=== PATIENT | female | born 1950 | race Caucasian/White ===

== ENCOUNTER → 2020-05-08 | Outpatient (CLI) | payer MEDICARE ==
[~2020-05-08] MED LIST: CONTRAST GIVEN. MC PRN; HYOS0.1222 PO; IOHEXOL 300 MG/ML 100ML VIAL. IV ONE; METF500T16 PO; MIRA50TA PO; PROG100C10 PO; RAMI10CA53 PO
--- NOTE | 2020-05-08 12:15 | KCIC ---
EXAM: CT CORONARY CALCIUM SCORING. HISTORY: Chest pain at rest. Calcium scoring is requested. COMPARISON: None. FINDINGS: Limited noncontrast CT of the chest was performed for coronary calcium scoring. Refer to the worksheets for full detail. Coronary calcium scoring is as follows: LMA: 0. LAD: 1. LCX: 0. RCA: 0. PDA: 0. Total: 1. The included portions of the chest reveal the following. Bone windows reveal no suspicious lesions. Images of the upper abdomen reveal no acute abnormality. There are no pathologically enlarged mediastinal lymph nodes. There is no pleural or pericardial effusion. The heart is not enlarged. There is a tiny benign calcified granuloma in the left midlung. No suspicious lung nodules or masses. IMPRESSION: 1. Coronary calcium score is 1. 2. Benign changes of antecedent granulomatous disease are noted incidentally. 0: No calcified plaque is present. This does not absolutely rule out the presence of atherosclerotic plaque, including unstable plaque, but does imply a very low likelihood of significant luminal narrowing or obstruction. Recommendation: Healthy lifestyle choices including cessation of smoking and eating appropriately and exercise are encouraged. 1 to 10: Calcium is detected in the coronary circulation and confirms the presence of atherosclerotic plaque. The greater the amount of coronary calcium, the greater the likelihood of occlusive coronary artery disease. However, there is not a one-to-one relationship, and findings may not be site specific.The total amount of calcium correlates best with the total amount of atherosclerotic plaque, although the true "plaque burden" may be underestimated by calcium score. Individuals in this score range typically have mild to moderate luminal irregularity at coronary angiography. There is low risk of cardiovascular event based on this test. Recommendation: 1. Further evaluation and prevention strategies should be based on global assessment of cardiovascular risk factors in addition to the results of this test. 2. Reduction of modifiable cardiovascular risk factors should be considered. 11-100: Calcium is detected in the coronary circulation and confirms the presence of atherosclerotic plaque. The greater the amount of coronary calcium, the greater the likelihood of stenotic or occlusive coronary artery disease. However, there is not a one-to-one relationship, and findings may not be site specific. The total amount of calcium correlates best with the total amount of atherosclerotic plaque, although the true "plaque burden" may be underestimated by calcium score. Individuals in this score range typically have mild to moderate luminal irregularity at coronary angiography. There is a Low to intermediate risk of cardiovascular events based on this test. Recommendation: 1. Further evaluation and prevention strategies should be based on global assessment of cardiovascular risk factors in addition to the results of this test. 2. Aggressive reduction of modifiable cardiovascular risk factors should be considered. 101 to 400: Calcium is detected in the coronary circulation and confirms the presence of atherosclerotic plaque. The greater the amount of coronary calcium, the greater the likelihood of stenotic or occlusive coronary artery disease. However, there is not a one-to-one relationship, and findings may not be site specific. The total amount of calcium correlates best with the total amount of atherosclerotic plaque, although the true "plaque burden" can be underestimated by calcium score. Individuals in this score range typically have mild to moderate luminal irregularity at coronary angiography. There is an intermediate risk of cardiovascular events based on this test. Recommendation: 1. Further evaluation and prevention strategies should be based on global assessment of cardiovascular risk factors in addition to the results of this test. 2. Aggressive reduction of modifiable cardiovascular risk factors should be considered. Over 400: Calcium is detected in the coronary circulation and confirms the presence of atherosclerotic plaque. The greater the amount of coronary calcium, the greater the likelihood of stenotic or occlusive coronary artery disease. However, there is not a one-to-one relationship, and findings may not be site specific. The total amount of calcium correlates best with the total amount of atherosclerotic plaque, although the true plaque burden may be underestimated by calcium score. A high calcium score may be consistent with a moderate to high risk of cardiovascular events within the 2-5 years. Recommendation: 1. Strongly consider further cardiac evaluation for pre-clinical coronary heart disease. 2. [place] aggressive cardiovascular risk factor modification as indicated based on risk profile. Additional supporting information concerning the findings and recommendation contained within this report can be found in the consensus statements on coronary vascular calcium published by the [place] [employer] and [place] [employer] 5 Conference (Circulation 1996; 94: 9004-5240; J Am Andrei Cardiol 2000; 36: 326-340 and Circulation 2000; 101: 111-116). *One or more of the following individualized dose reduction techniques were utilized for this examination: 1. Automated exposure control. 2. Adjustment of the mA and/or kV according to patient size. 3. Use of iterative reconstruction technique. Electronically signed by: Kiran Rogel MD (05/08/2020 12:12 PM) [id number]
--- NOTE | 2020-05-08 12:54 | KCIC ---
Exam: CT abdomen/pelvis with and without intravenous contrast Indication: Adrenal mass, nephrolithiasis, chest pain at rest Comparison: CT abdomen and pelvis 09/27/2013 Technique: Helical CT imaging performed of the abdomen and pelvis before and after the intravenous administration of 100 mL Omnipaque 300 intravenous contrast. Sagittal and coronal reformats were obtained. One or more of the following individualized dose reduction techniques were utilized for this examination: 1. Automated exposure control 2. Adjustment of the mA and/or kV according to patient size 3. Use of iterative reconstruction technique. Findings: Lower chest: Lung bases are clear. Heart is normal in size. Liver: The liver is normal in size. No focal lesion. Hepatic, portal, and superior mesenteric veins are patent. There is a calcified splenic artery aneurysm measuring 1.3 cm, unchanged. Gallbladder/Biliary Tree: Normal. Pancreas: Normal. Spleen: Normal. Adrenal Glands: There is a 1.8 cm left adrenal adenoma and a 1.4 cm right adrenal adenoma, both minimally increased in size with Hounsfield units of less than zero on noncontrast phase of the exam and greater than 60 percent washout, consistent with adenomas. Kidneys/Ureters/Bladder: The kidneys are normal in size and enhance symmetrically. Left hydronephrosis on prior exam has resolved There is left nephrolithiasis with several calculi measuring up to 2 mm. No right nephrolithiasis. Or hydronephrosis. Ureters and bladder are normal. Reproductive Organs: The uterus is surgically absent. No adnexal mass. Stomach, small bowel, and colon: Stomach, small bowel, colon, and appendix are normal. Vasculature: Abdominal aorta is normal in caliber. Lymph Nodes: Prominent portacaval lymph node is unchanged in 2014. There is no suspicious lymphadenopathy. Peritoneum and retroperitoneum: No free fluid or free air. Bones: Increased, 6 mm anterolisthesis at L4-L5 related to severe facet arthrosis. Worsening, moderate degenerative disc disease at L4-L5 and milder disc degenerative disc disease elsewhere. Mild osteoarthrosis of the hips. Impression: 1. Small benign bilateral adrenal adenomas. 2. Resolution of left hydronephrosis. Left nephrolithiasis. 3. Unchanged splenic artery aneurysm. 4. Worsened, moderate degenerative disc disease and severe facet arthrosis at L4-L5 with grade 1 spondylolisthesis. Electronically signed by: Vani Millan MD (05/08/2020 12:52 PM) [id number]
== END | disposition home or self-care (01) ==
LOC: KCIC CT 08:22
PROVIDERS: ATTEND Family Medicine
DX: I25.10 Atherosclerotic heart disease of native coronary artery without angina pectoris (principal); N20.0 Calculus of kidney; I72.8 Aneurysm of other specified arteries; M51.36 Other intervertebral disc degeneration, lumbar region; D35.01 Benign neoplasm of right adrenal gland; M43.16 Spondylolisthesis, lumbar region; M16.0 Bilateral primary osteoarthritis of hip; J84.10 Pulmonary fibrosis, unspecified
CPT/HCPCS: 74178; 75571; Q9967

== ENCOUNTER → 2020-10-29 | Outpatient (CLI) | payer MEDICARE ==
[~2020-10-29] MED LIST changes: -CONTRAST GIVEN. MC PRN; -IOHEXOL 300 MG/ML 100ML VIAL. IV ONE
--- NOTE | 2020-10-29 16:08 | KCIC ---
L spine 5 views INDICATION: Low back pain, right-sided sciatica and L4-L5 spondylolisthesis. TECHNIQUE: Standing AP, lateral, bilateral oblique and coned-down lateral views of the lumbar spine w ere obtained FINDINGS: There is levoscoliosis of the lumbar spine with a Bruno angle of approximately 7 degrees as measured f rom the inferior endplate of T12 to the inferior endplate of L4 (5 lumbar type vertebrae noted). With a 1 anterolisthesis of L4-L5 is also apparent measuring approximately 6 mm in the upright lateral vi ew. The bones are mildly demineralized but show no fracture or aggressive appearing osseous lesions. The vertebral body heights are preserved. No pars defects are identified on the oblique views. Multilevel facet hypertrophic change is present. Disc space narrowing is present at multiple levels as well. This is most conspicuous at the L4-L5 and L2-L3 levels. The visualized hips and sacroiliac joints are unremarkable. Soft tissues show arterial vascular calci fications in the splenic artery and moderate stool in the bowel. IMPRESSION: Multilevel lumbar spinal degenerative changes involving the disks and facet joints with levoscoliosis and L4-L5 grade 1 anterolisthesis as described. No fracture or aggressive appearing bony lesions not ed. Electronically signed by: Mesha Chand MD (10/29/2020 4:05 PM) [id number]
== END ==
LOC: KCIC 14:12
PROVIDERS: ATTEND Family Medicine
DX: M47.816 Spondylosis without myelopathy or radiculopathy, lumbar region (principal); M43.16 Spondylolisthesis, lumbar region; M41.86 Other forms of scoliosis, lumbar region; M54.31 Sciatica, right side
CPT/HCPCS: 72110

== ENCOUNTER → 2021-05-21 | Outpatient (CLI) | payer MEDICARE ==
[~2021-05-21] MED LIST changes: +IOHEXOL 300 MG/ML 100ML VIAL. IV ONE; +MIRA25TA PO; -MIRA50TA PO
--- NOTE | 2021-05-21 13:42 | KCIC ---
CTA HEAD History:Reason: Memory loss, TIA. / Spl. Instructions: 95mL Omni 300 / History: Technique: After bolus of intravenous contrast, volumetric CT data acquisition was acquired of the ad. Multiplanar reconstruction images to include MIP and 3-D reconstruction images are submitted. Exposure: One or more of the following individualized dose reduction techniques were utilized for thi s examination: 1. Automated exposure control 2. Adjustment of the mA and/or kV according to patient size 3. Use of iterative reconstruction technique. Comparison: None. Any determination of stenosis is based on NASCET criteria. Noncontrast CT head: No intracranial hemorrhage. No mass effect. No hydrocephalus. Mild foci of decreased attenuation within the hemispheric white matter, most often due to chronic sandra rovascular ischemia. Imaged orbits are unremarkable. Imaged paranasal sinuses and mastoid air cells are clear. Head CTA: ICA: No stenosis, occlusion or aneurysm. MCA: No stenosis, occlusion or aneurysm. CRISTINA: No stenosis, occlusion or aneurysm. HAND MARKER: No stenosis, occlusion or aneurysm. Basilar artery: No stenosis, occlusion or aneurysm. Distal vertebral arteries: No stenosis, occlusion or aneurysm. Patent superior sagittal, straight, transverse and sigmoid venous sinuses. Impression: 1. No acute intracranial abnormality. 2. No intracranial arterial stenosis or occlusion. Electronically signed by: Dusty Neal DO (05/21/2021 1:39 PM) [facility]
== END ==
LOC: KCIC CT 09:39
PROVIDERS: ATTEND Family Medicine
DX: G45.9 Transient cerebral ischemic attack, unspecified (principal)
CPT/HCPCS: 70496; 82565; Q9967